=== PATIENT | male | born 1990 | race Caucasian/White ===

== ENCOUNTER 2018-07-12 09:35 | Day surgery (SDC) | payer OTHER ==
[2018-07-12] MEDS ORDERED: BUPIVACAINE 0.5% 30 ML SDV ONE (09:56)
[2018-07-12] MEDS ORDERED: LR 1,000 ML IV ONE (09:59)
[2018-07-12] MEDS ORDERED: cefOXitin SODIUM 2 GM in NS 100 ML IV ONE (10:17)
[2018-07-12] MEDS ORDERED: MIDAZOLAM 2 MG/2 ML VIAL IVP ONE (10:23)
--- NOTE | 2018-07-12 10:23 | PDANEPAE ---
ANE History of Present Illness 27 y/o male with appendicitis. ANE Past Medical History - Cardiovascular History Hx Hypertension: No Hx Arrhythmias: No Hx Chest Pain: No Hx Coronary Artery / Peripheral Vascular Disease: No Hx CHF / Valvular Disease: No Hx Palpitations: No - Pulmonary History Hx COPD: No Hx Asthma/Reactive Airway Disease: No Hx Recent Upper Respiratory Infection: No Hx Oxygen in Use at Home: No Hx Sleep Apnea: No Sleep Apnea Screening Result - Last Documented: Negative - Neurologic History Hx Cerebrovascular Accident: No Hx Seizures: No Hx Dementia: No - Endocrine History Hx Diabetes: No - Renal History Hx Renal Disorders: No - Liver History Hx Hepatic Disorders: No - Neurological & Psychiatric Hx Hx Neurological and Psychiatric Disorders: No - Cancer History Hx Cancer: No - Congenital Disorder History Hx Congenital Disorders: No - GI History Hx Gastrointestinal Disorders: No - Chronic Pain History Chronic Pain: No - Surgical History Prior Surgeries: BILAT KNEE SURG ANE Review of Systems Review of Systems: - Exercise capacity Exercise capacity: >=4 METS METS (RN): 6 METS ANE Patient History - Allergies Allergies/Adverse Reactions: No Known Allergies Allergy (Unverified 07/12/18 10:06) - Home Medications Home Medications: NK [No Known Home Meds] 07/12/18 [Last Taken Unknown] - NPO status NPO Status: no food or drink >8 hours NPO Since - Liquids (Date): 07/11/18 NPO Since - Liquids (Time): 21:00 NPO Since - Solids (Date): 07/11/18 NPO Since - Solids (Time): 21:00 - Anes Hx Anes Hx: no prior problems - Smoking Hx Smoking Status: Never smoked - Family Anes Hx Family Hx Anesthesia Complications: Mom states that she has memory loss for a few months after anesthesia and that her hair falls out. ANE Labs/Vital Signs - Vital Signs Vital Signs: reviewed preoperatively; see RN documention for details Blood Pressure: 136/88 Heart Rate: 87 Respiratory Rate: 19 O2 Sat (%): 97 Height: 180.34 cm Weight: 74.843 kg ANE Physical Exam - Airway Mallampati Score: Class 1 Mouth exam: normal dental/mouth exam - Pulmonary Pulmonary: clear to auscultation - Cardiovascular Cardiovascular: regular rate and rhythym - ASA Status ASA Status: I
[2018-07-12] MEDS ORDERED: PROPOFOL 200 MG/20 ML VIAL ONE ×2 (10:30→10:46)
[2018-07-12] MEDS ORDERED: SUCCINYLCHOLINE CHLORIDE 200 MG/10 ML SYR IVP ONE (10:31)
[2018-07-12] MEDS ORDERED: fentaNYL 100 MCG/2 ML INJ ONE ×2 (10:31→11:42)
[2018-07-12] MEDS ORDERED: ROCURONIUM 50 MG/5 ML VIAL ONE (10:31)
--- NOTE | 2018-07-12 10:32 | PDGENHP ---
History & Physical Chief Complaint: Abdominal pain History of Present Illness: Patient with initial GI upset with diarrhea 2 weeks ago. Since then he has had cough, dizziness, dysuria. Abd pain x 2 days, seen by PCP yesterday. CT scan shows fecalith, inflammation of the appendix. Patient states pain is unchanged but no further F/C. No N/V. No prior h/o similar symptoms. No ill contacts. Pertinent Past, Social, Family History: PMHx: negative. PSHx: Knee surgery x 2 , wrist surgery. No abdominal surgery. Meds: none. NDKA. NS Relevant Physical Exam: Alert, NAD. RRR. CTA B. Abd soft, mod TTP periumbilical, suprapubic. Less TTP at McBurney's. No rebound. Cardiorespiratory Assessment: As above. Risks/benefits of laparoscopic appendectomy discussed with patient and family at length, including normal appendix. Risks of not operating discussed. Questions answered.
[2018-07-12] MEDS ORDERED: LIDOCAINE 2% 2 ML INJ ONE ×2 (10:34)
[2018-07-12] MEDS ORDERED: DEXAMETHASONE 4 MG/ML VIAL ONE (10:36)
[2018-07-12] MEDS ORDERED: KETOROLAC 30 MG/1 ML SDV ONE (11:01)
[2018-07-12] MEDS ORDERED: ONDANSETRON 4 MG/2 ML VIAL ONE (11:01)
[2018-07-12] MEDS ORDERED: NS 500 ML IV PRN (11:11)
[2018-07-12] MEDS ORDERED: PROMETHAZINE HCL 25 MG/ML INJ IVP PRN (11:11)
[2018-07-12] MEDS ORDERED: MEPERIDINE 25 MG/0.5 ML AMP IVP PRN (11:11)
[2018-07-12] MEDS ORDERED: oxyCODONE IR 5 MG TAB PO PRN (11:11)
[2018-07-12] MEDS ORDERED: ONDANSETRON 4 MG/2 ML VIAL IVP PRN (11:11)
[2018-07-12] MEDS ORDERED: ACETAMINOPHEN 500 MG TAB PO PRN (11:11)
[2018-07-12] MEDS ORDERED: HYDROmorphONE/DILAUDID 2 MG/ML INJ IVP PRN (11:11)
[2018-07-12] MEDS ORDERED: METOCLOPRAMIDE 10 MG/2 ML VIAL IVP PRN (11:11)
[2018-07-12] MEDS ORDERED: fentaNYL 100 MCG/2 ML INJ IVP PRN (11:11)
[2018-07-12] MEDS ORDERED: NALOXONE HCL 0.4 MG/ML INJ IVP PRN (11:11)
[2018-07-12] MEDS ORDERED: GLYCOPYRROLATE 0.2 MG/1 ML VIAL ONE ×2 (11:13→11:20)
[2018-07-12] MEDS ORDERED: NEOSTIGMINE METHYLSULFATE 5 MG/5 ML SYR ONE (11:13)
--- NOTE | 2018-07-12 11:41 | POSTANESTH ---
Post Anesthetic Evaluation Respiratory Status: Normal, Stable Level of Consciousness/Mental Status: Can Participate in Eval Pain Control: Adequate, Prn Tx Ordered Nausea/Vomiting Control: Adequate, Prn Tx Ordered Complications Possibly Related to Anesthesia: None Noted
--- NOTE | 2018-07-12 11:44 | POSTOPPROG ---
Post Op Note Date of Operation: 07/12/18 Surgeon: Kane Levin Anesthesiologist: Dr. Marlow Anesthesia: GET(General Endotracheal) Pre-op Diagnosis: Appendicitis Post-op Diagnosis: Same Procedure: Lap appy Inf/Abcess present in the surg proc area at time of surgery?: Yes Depth: Organ Space EBL: Minimal
[2018-07-12 12:47] VITALS: BP 124/74
--- NOTE | 2018-07-12 12:52 | GOP ---
DATE OF OPERATION: 07/12/2018 SURGEON: Ander Levin MD ANESTHESIA: General endotracheal anesthesia. ANESTHESIOLOGIST: Leslie Marlow MD. PREOPERATIVE DIAGNOSIS: Appendicitis. POSTOPERATIVE DIAGNOSIS: Appendicitis. PROCEDURE PERFORMED: Laparoscopic appendectomy. FINDINGS: The patient had an inflamed appendix with a dilated tip. No other lesions were identified after careful inspection. ESTIMATED BLOOD LOSS: 20 cc. INDICATIONS: This is a 27-year-old male with a history of abdominal pain. CT scan demonstrated appe ndicitis. Risks and benefits of the procedure were discussed with the patient and his family, their questions were answered, and they wished to proceed. DESCRIPTION OF PROCEDURE: The patient was in the supine position. After the induction of adequate g eneral endotracheal anesthesia, the patient was prepped and draped in the standard surgical fashion. Marcaine 0.5% was injected throughout the infraumbilical area and a 5-mm incision was made. The abd ominal wall was elevated and the Veress needle was inserted. After noting proper pressures, the abdo men was insufflated with carbon dioxide. A 5-mm trocar was passed and the camera followed. There wa s no apparent damage with trocar placement. Two more ports were placed, one 5-mm port in the suprapu bic midline and one 12-mm port in the left lower quadrant. These were both placed under direct visio n after injecting 0.5% Marcaine for local anesthesia. The abdomen was inspected. The base of the appendix was then dissected. A window was opened in the mesentery using blunt dissection. An Endo ALTAGRACIA stapler with a vascular load was passed across the mes oappendix and fired. A bowel load was then passed across the base of the appendix and fired. The te rminal ileum was seen to be clear of these firings. The appendix was placed into an Endo Catch bag a nd withdrawn through the 12-mm port. The abdomen was then inspected. Good hemostasis was noted. The fascia at the 12-mm port site was cl osed using 0 Vicryl in a [id number] fashion. The wounds were thoroughly irrigated and the skin at all sites was closed with 4-0 Monocryl in a subcuticular stitch. The wounds were sterilely dresse d. The patient was extubated and taken to the PACU in stable condition. COMPLICATIONS: None. DRAINS: None. /[id number]/MODL
== END 2018-07-12 13:00 | disposition home or self-care (01) ==
LOC: FSGY 09:35
PROVIDERS: ATTEND Surgery
PROC: 0DTJ4ZZ Resection of Appendix, Percutaneous Endoscopic Approach (ICD-10-PCS; principal; 2018-07-12 10:45)
DX: K37 Unspecified appendicitis (principal)
CPT/HCPCS: J0330; J0694; J1100; J1885; J2250; J2405; J2704; J2710; J3010